=== PATIENT | male | born 1950 | race Caucasian/White ===

== ENCOUNTER 2016-11-26 22:29 | Emergency (ER) | payer MEDICARE ==
[~2016-11-26] VITALS: Ht 177.8 cm; Wt 72.6 kg
[~2016-11-26 22:29] MED LIST: AMARYL1 M1 PO; ATIVAN0.5 MG PO; B-1100 MG PO; CIPRO500 MG PO; FOLIC ACID1 MG PO; LASIX40 MG PO; LIBRIUM25 MG PO; METOPROLOL25 MG PO; PRILOSEC20 M1 PO
[2016-11-26 23:06] LABS: BASO % 0.6 % (0.0-1.0); EOS # 0.4 10*3/uL (0.0-0.4); EOS % 5.6 % (1.0-4.0); HEMATOCRIT 26.5 % (42.0-52.0); LYMPH % 14.2 % (27.0-41.0); MEAN CELL VOLUME 86.9 fl (80.0-94.0); MEAN CORPUSCULAR HGB 29.5 pg (27.0-31.0); MEAN PLATELET VOLUME 8.4 fl (9.6-12.3); MONO # 0.5 10*3/uL (0.1-1.0); MONO % 7.2 % (3.0-9.0); NEUT # 5.2 10*3/uL (2.3-7.9); NEUT % 71.8 % (47.0-73.0); PLATELET COUNT AUTOMATED 170 10*3/uL (130-400); RED BLOOD COUNT 3.05 10*6/uL (4.50-5.90); RED CELL DISTRI WIDTH 13.2 % (0-14.5); WHITE BLOOD COUNT 7.2 10*3/uL (4.8-10.8)
[2016-11-26 23:18] LABS: BUN 57 mg/dl (7-24); CARBON DIOXIDE 14 mmol/L (21-32); CHLORIDE 108 mmol/L (98-107); EST GLOM FILT AFRICAN AMERICAN 17 ml/min; GLUCOSE 77 mg/dL (65-99); POTASSIUM 4.2 mmol/L (3.5-5.1); SODIUM 137 mmol/L (136-145)
[2016-11-26 23:22] LABS: HEMOGLOBIN A1c 5.4 % (4.8-5.6)
[2016-11-27 01:07] LABS: BILIRUBIN NEGATIVE (NEGATIVE); BLOOD 1+ (NEGATIVE); CLARITY CLEAR (CLEAR); COLOR YELLOW (YELLOW); GLUCOSE NEGATIVE (NEGATIVE); KETONE NEGATIVE (NEGATIVE); LEUKO ESTERASE 2+ (NEGATIVE); NITRITE NEGATIVE (NEGATIVE); PROTEIN TRACE (NEGATIVE); SPECIFIC GRAVITY <= 1.005 (1.005-1.030); UROBILINOGEN 0.2 E.U./dl (0.2-1.0)
[2016-11-27 01:12] VITALS: BP 174/90
[2016-11-27 01:15] LABS: BACTERIA 3+; EPITHELIAL CELLS 0-2; URINE REFLEX COMMENT YES (NO); WBC 16-20 wbc/hpf (0-5)
[2016-11-27] MEDS ORDERED: CIPRO500 MG PO (01:24)
== END 2016-11-27 01:50 | disposition home or self-care (01) ==
LOC: ED 22:29
PROVIDERS: Emergency Medicine Emergency Medical Services
DX: I12.9 Hypertensive chronic kidney disease with stage 1 through stage 4 chronic kidney disease, or unspecified chronic kidney disease (principal); N18.9 Chronic kidney disease, unspecified; E11.65 Type 2 diabetes mellitus with hyperglycemia; N39.0 Urinary tract infection, site not specified; Z79.4 Long term (current) use of insulin; Z87.891 Personal history of nicotine dependence; K21.9 Gastro-esophageal reflux disease without esophagitis; Z88.8 Allergy status to other drugs, medicaments and biological substances; Z79.899 Other long term (current) drug therapy

== ENCOUNTER 2017-04-12 18:49 | Emergency (ER) | payer MEDICARE ==
[~2017-04-12] VITALS: Ht 170.1 cm; Wt 57.6 kg
[2017-04-12 18:49] VITALS: BP 145/92
[2017-04-12 19:36] LABS: BASO # 0.1 10*3/uL (0.0-0.1); BASO % 0.8 % (0.0-1.0); EOS # 0.3 10*3/uL (0.0-0.4); EOS % 4.1 % (1.0-4.0); HEMATOCRIT 27.3 % (42.0-52.0); HEMOGLOBIN 9.5 g/dl (14.0-18.0); LYMPH # 1.5 10*3/uL (1.3-4.4); LYMPH % 22.9 % (27.0-41.0); MEAN CELL VOLUME 85.8 fl (80.0-94.0); MEAN CORPUSCULAR HGB 29.9 pg (27.0-31.0); MEAN CORPUSCULAR HGB CONC 34.8 g/dl (33.0-37.0); MEAN PLATELET VOLUME 9.3 fl (9.6-12.3); MONO # 0.5 10*3/uL (0.1-1.0); MONO % 7.1 % (3.0-9.0); NEUT # 4.1 10*3/uL (2.3-7.9); NEUT % 64.9 % (47.0-73.0); PLATELET COUNT AUTOMATED 222 10*3/uL (130-400); RED BLOOD COUNT 3.18 10*6/uL (4.50-5.90); RED CELL DISTRI WIDTH 12.9 % (0-14.5); WHITE BLOOD COUNT 6.3 10*3/uL (4.8-10.8)
[2017-04-12 19:52] LABS: CREATININE 4.61 mg/dL (0.70-1.30); INTERNATIONAL NORM RATIO 1.1 (2.0-3.5); POTASSIUM 4.5 mmol/L (3.5-5.1); TOTAL PROTEIN 7.6 gm/dL (6.4-8.2)
[2017-04-12 19:53] LABS: TROPONIN I 0.036 ng/ml (<0.045)
== END 2017-04-12 21:08 | disposition home or self-care (01) ==
LOC: ED 18:49
PROVIDERS: Nurse Practitioner Family
DX: R55 Syncope and collapse (principal); N18.9 Chronic kidney disease, unspecified; F10.10 Alcohol abuse, uncomplicated; Z88.8 Allergy status to other drugs, medicaments and biological substances; Z79.899 Other long term (current) drug therapy; Z87.891 Personal history of nicotine dependence

== ENCOUNTER 2017-10-06 10:05 | Emergency (ER) | payer MEDICARE ==
[~2017-10-06] VITALS: Ht 172.7 cm; Wt 61.2 kg
[2017-10-06 10:43] LABS: BASO % 0.1 % (0.0-1.0); HEMATOCRIT 33.5 % (42.0-52.0); HEMOGLOBIN 11.4 g/dl (14.0-18.0); LYMPH # 0.5 10*3/uL (1.3-4.4); LYMPH % 5.5 % (27.0-41.0); MEAN CELL VOLUME 88.6 fl (80.0-94.0); MEAN CORPUSCULAR HGB 30.2 pg (27.0-31.0); MEAN PLATELET VOLUME 9.7 fl (9.6-12.3); MONO # 0.6 10*3/uL (0.1-1.0); MONO % 6.4 % (3.0-9.0); NEUT # 8.6 10*3/uL (2.3-7.9); NEUT % 87.3 % (47.0-73.0); PLATELET COUNT AUTOMATED 183 10*3/uL (130-400); RED BLOOD COUNT 3.78 10*6/uL (4.50-5.90); RED CELL DISTRI WIDTH 13.2 % (0-14.5); WHITE BLOOD COUNT 9.9 10*3/uL (4.8-10.8)
[2017-10-06 10:59] LABS: CREATININE 7.99 mg/dL (0.70-1.30); POTASSIUM 4.6 mmol/L (3.5-5.1); TOTAL PROTEIN 8.3 gm/dL (6.4-8.2)
[2017-10-06 11:05] LABS: TROPONIN I 9.63 ng/ml (<0.045)
[2017-10-06 11:05] LABS: ETHYL ALCOHOL < 3.0 mg/dl (<3)
[2017-10-06 12:00] LABS: ABG HCO3 4.2 mmol/l (22-26); ABG O2 SATURATION 96.8 % (95-97)
[2017-10-06 12:03] LABS: ABG BASE EXCESS -23.1 mmol/L (-2.0-2.0); ARTERIAL BLOOD GAS PCO2 11.8 mmHg (35-45); ARTERIAL BLOOD GAS PH 7.185 (7.35-7.45)
[2017-10-06 12:23] LABS: BILIRUBIN NEGATIVE (NEGATIVE); BLOOD 3+ (NEGATIVE); CLARITY CLOUDY (CLEAR); COLOR YELLOW (YELLOW); GLUCOSE NEGATIVE (NEGATIVE); KETONE TRACE (NEGATIVE); LEUKO ESTERASE NEGATIVE (NEGATIVE); NITRITE NEGATIVE (NEGATIVE); UROBILINOGEN 0.2 E.U./dl (0.2-1.0)
[2017-10-06 12:39] LABS: BACTERIA 4+; EPITHELIAL CELLS 0-2; WBC 0-2 wbc/hpf (0-5)
[2017-10-06 14:46] VITALS: BP 154/86
== END 2017-10-06 14:45 | disposition short-term general hospital (02) ==
LOC: ED 10:05
PROVIDERS: Emergency Medicine
DX: M62.82 Rhabdomyolysis (principal); I21.4 Non-ST elevation (NSTEMI) myocardial infarction; K21.9 Gastro-esophageal reflux disease without esophagitis; I12.9 Hypertensive chronic kidney disease with stage 1 through stage 4 chronic kidney disease, or unspecified chronic kidney disease; E11.22 Type 2 diabetes mellitus with diabetic chronic kidney disease; N18.9 Chronic kidney disease, unspecified; Z88.8 Allergy status to other drugs, medicaments and biological substances; Z79.899 Other long term (current) drug therapy

== ENCOUNTER 2017-12-07 12:37 | Inpatient (IN) | payer MEDICARE, MEDICAID ==
[~2017-12-07] VITALS: Ht 170.2 cm; Wt 50.0 kg
--- NOTE | ~2017-12-07 | CON ---
[place], [place] REPORT OF CONSULTATION NAME: GERALDINE TAYLOR SR [facility] #: [id number] UNIT #: [id number] ROOM: [facility] DOCTOR: KATI ZAPATA MD BIRTHDATE: [birth year] DOS: 12/08/2017 REASON FOR CONSULTATION: Elevated troponin level. HISTORY OF PRESENT ILLNESS: The patient is a 67-year-old man who was admitted to the hospital on this occasion because of increased malaise, fatigue and decreased level of consciousness. He was brought from the [facility] to the [facility] where he was found to have a marked elevation in liver enzymes as well as a fever of 103.6. Ultrasound of the liver does show pericolic fluid and thickening of the gallbladder wall along with tenderness in the right upper quadrant. The patient is felt to have acute cholecystitis. We were asked to see the patient because of elevated troponins. They have ranged from an admission level of 0.088 to a peak of 0.380. His EKG does not show any acute changes. The patient is very lethargic and does not admit to any chest pain. The patient was initially admitted to [facility] on 10/06/2017 when he presented after neighbors found him obtunded and sitting in a recliner. Laboratory studies showed that his creatinine at that time was 7.99 with an elevated troponin at 9. It was felt that his problems were due to alcohol intoxication and rhabdomyolysis. In the hospital, his renal functions did not improve and he was started on dialysis. His hospitalization was complicated by pneumonia and influenza. He was subsequently sent to [facility] and then to the [facility]. PAST MEDICAL HISTORY: Includes 1. Diabetes mellitus. 2. Hypertension. 3. History of heavy alcohol use. 4. Rhabdomyolysis with acute renal failure, September 2015. 5. Dialysis initiated, September 2015. 6. Echocardiogram, April 2013, showed a technically difficult study with normal left ventricular size and function, normal right ventricular size and function, thickened aortic valve without evidence for stenosis and mitral annular calcification. REVIEW OF SYSTEMS: Unavailable due to the patient's current condition. FAMILY HISTORY: The patient's father at age 90. The patient's mother of a heart attack at age 55. MEDICATIONS: Prior to admission: Folic acid 1 mg daily, furosemide 40 mg daily, glimepiride 1 mg twice a day, levothyroxine 25 mcg daily, lorazepam 0.5 mg b.i.d., metoprolol tartrate 25 mg b.i.d., mirtazapine 15 mg at bedtime, omeprazole 20 mg daily, vitamin D once a day, insulin NovoLog 100 units subcutaneously a.c. and at bedtime by sliding scale. SOCIAL HISTORY: The patient lives alone. He does have a history of alcohol [place], [place] REPORT OF CONSULTATION NAME: GERALDINE TAYLOR SR UNIT #: [id number] ROOM: [facility] DOCTOR: KATI ZAPATA MD BIRTHDATE: [birth year] use. He has been abstinent since his recent hospitalization in September 2017. PHYSICAL EXAMINATION: GENERAL: The patient is a cachectic appearing white male who looks much older than his stated age. VITAL SIGNS: Pulse is 98 and somewhat irregular, blood pressure is 135/88. He weighs 50 kg and has a body mass index of 17.3. He is febrile with a temperature of 103.6. HEENT: Normocephalic and atraumatic. Extraocular muscles are intact. Sclerae are clear. Pupils equal, round and react to light. The oral mucosa is moist. Tongue is midline. NECK: Supple. He has no jugular distention. Carotids are full. I heard no bruits. LUNGS: Respirations were coarse and he does have decreased breath sounds at the bases. He was using [place] respirations. CARDIOVASCULAR: His heart had a somewhat irregular rhythm. The monitor does show multifocal atrial tachycardia. He has a fourth heart sound, but no third heart sound or obvious murmur. The PMI is not displaced. He has no precordial heave, lift or thrill. ABDOMEN: Soft. He does have tenderness in the right upper quadrant. Bowel sounds are hypoactive. There is no obvious mass. EXTREMITIES: Showed no edema. Peripheral pulses are absent in the feet. LABORATORY DATA: I reviewed his electrocardiogram, which showed sinus rhythm with frequent PACs. He does have evidence for left ventricular hypertrophy and secondary ST and T-wave changes. IMPRESSION: 1. Acute cholecystitis. 2. End-stage renal disease. 3. History of alcohol abuse. 4. Mild elevation in troponin, most likely due to the combination of acute cholecystitis, possible sepsis and renal failure. PLAN: The patient is being transferred to [facility] for further management of his acute cholecystitis. I would obtain an echocardiogram to assess left ventricular function, but I believe that we should proceed with surgery as indicated. [facility] and I thank the hospitalist service for asking our advice regarding the patient's care. [place], [place] REPORT OF CONSULTATION NAME: GREALDINE TAYLOR SR UNIT #: [id number] ROOM: [facility] DOCTOR: KATI ZAPATA MD BIRTHDATE: [birth year] KATI ZAPATA MD CM:CONSTR:REPORT OF CONSULTATION 1052 12/08/17 1825 interface
[2017-12-07 12:40] VITALS: BP 140/95
[2017-12-07 13:23] LABS: BASO % 0.4 % (0.0-1.0); EOS # 0.1 10*3/uL (0.0-0.4); EOS % 1.1 % (1.0-4.0); HEMATOCRIT 32.5 % (42.0-52.0); HEMOGLOBIN 10.9 g/dl (14.0-18.0); LYMPH # 1.3 10*3/uL (1.3-4.4); LYMPH % 26.3 % (27.0-41.0); MEAN CELL VOLUME 86.4 fl (80.0-94.0); MEAN CORPUSCULAR HGB CONC 33.5 g/dl (33.0-37.0); MONO # 0.5 10*3/uL (0.1-1.0); MONO % 10.1 % (3.0-9.0); NEUT # 2.9 10*3/uL (2.3-7.9); NEUT % 61.7 % (47.0-73.0); PLATELET COUNT AUTOMATED 205 10*3/uL (130-400); RED BLOOD COUNT 3.76 10*6/uL (4.50-5.90); RED CELL DISTRI WIDTH 14.6 % (0-14.5); WHITE BLOOD COUNT 4.8 10*3/uL (4.8-10.8)
[2017-12-07 13:38] LABS: ALBUMIN 3.7 gm/dl (3.1-4.5); CREATININE 3.99 mg/dL (0.70-1.30); POTASSIUM 3.9 mmol/L (3.5-5.1); TOTAL PROTEIN 7.3 gm/dL (6.4-8.2)
[2017-12-07 13:45] LABS: TROPONIN I 0.088 ng/ml (<0.045)
[2017-12-07 15:44] VITALS: BP 140/84
[2017-12-07 17:20] VITALS: BP 140/82
[2017-12-07] MEDS ORDERED: SYNTHROID25 MCG PO (17:58)
[2017-12-07] MEDS ORDERED: NOVOLOG FL100 UNIT/1 SQ (17:59)
[2017-12-07] MEDS ORDERED: REMERON15 M2 PO (18:00)
[2017-12-07] MEDS ORDERED: NATURE'S BLEND F1 MG PO (18:00)
[2017-12-07] MEDS ORDERED: COMPLEX B-1001 EACH PO (18:01)
[2017-12-07 20:00] VITALS: BP 146/96
[2017-12-08] VITALS: BP 126/86
[2017-12-08 06:31] LABS: BASO # 0.1 10*3/uL (0.0-0.1); BASO % 0.8 % (0.0-1.0); EOS % 0.5 % (1.0-4.0); HEMATOCRIT 37.8 % (42.0-52.0); HEMOGLOBIN 12.3 g/dl (14.0-18.0); LYMPH # 2.2 10*3/uL (1.3-4.4); LYMPH % 27.3 % (27.0-41.0); MEAN CELL VOLUME 88.5 fl (80.0-94.0); MEAN CORPUSCULAR HGB 28.8 pg (27.0-31.0); MEAN CORPUSCULAR HGB CONC 32.5 g/dl (33.0-37.0); MEAN PLATELET VOLUME 10.4 fl (9.6-12.3); MONO # 0.9 10*3/uL (0.1-1.0); NEUT # 4.8 10*3/uL (2.3-7.9); NEUT % 60.1 % (47.0-73.0); RED BLOOD COUNT 4.27 10*6/uL (4.50-5.90); WHITE BLOOD COUNT 7.9 10*3/uL (4.8-10.8)
[2017-12-08 06:33] LABS: PLATELET COUNT AUTOMATED 274 10*3/uL (130-400)
[2017-12-08 06:59] LABS: ALBUMIN 3.6 gm/dl (3.1-4.5); CREATININE 4.58 mg/dL (0.70-1.30); PHOSPHOROUS 4.9 mg/dL (2.5-4.9); POTASSIUM 4.8 mmol/L (3.5-5.1); TOTAL PROTEIN 7.1 gm/dL (6.4-8.2)
[2017-12-08 07:03] LABS: THYROID STIM HORMONE (HS) 10.2 uIU/ml (0.358-4.75)
[2017-12-08 07:17] LABS: FREE T4 1.93 ng/dl (0.76-1.46)
[2017-12-08 08:00] VITALS: BP 125/85
[2017-12-08 08:17] LABS: BILIRUBIN, DIRECT 0.9 mg/dL (0.0-0.2)
[2017-12-08 08:37] LABS: VITAMIN D, 25-HYDROXY 25.2 ng/mL (30-100)
[2017-12-08 09:45] VITALS: BP 135/88
[2017-12-08 12:00] VITALS: BP 128/84
[2017-12-09 07:09] LABS: HEPATITIS B SURFACE AG Negative (Negative); HEPATITIS C VIRUS ANTIBODY 0.1 s/co (0.0-0.9)
== END 2017-12-08 13:44 | disposition short-term general hospital (02) | DRG 871 ==
LOC: ED 12:37 → ICCU 16:10 → EDHOLD 16:10 → 5E 16:10 → ICCU 12-08 09:28
PROVIDERS: Internal Medicine; Registered Nurse
DX: A41.9 Sepsis, unspecified organism (principal); N18.6 End stage renal disease; J90 Pleural effusion, not elsewhere classified; E44.0 Moderate protein-calorie malnutrition; K80.00 Calculus of gallbladder with acute cholecystitis without obstruction; E11.22 Type 2 diabetes mellitus with diabetic chronic kidney disease; K56.7 Ileus, unspecified; E83.39 Other disorders of phosphorus metabolism; E87.1 Hypo-osmolality and hyponatremia; Z68.1 Body mass index [BMI] 19.9 or less, adult; R65.20 Severe sepsis without septic shock; E11.65 Type 2 diabetes mellitus with hyperglycemia; K21.9 Gastro-esophageal reflux disease without esophagitis; I12.9 Hypertensive chronic kidney disease with stage 1 through stage 4 chronic kidney disease, or unspecified chronic kidney disease; K52.9 Noninfective gastroenteritis and colitis, unspecified; R74.0 Nonspecific elevation of levels of transaminase and lactic acid dehydrogenase [LDH]; E80.6 Other disorders of bilirubin metabolism; D64.9 Anemia, unspecified; E83.51 Hypocalcemia; Z99.2 Dependence on renal dialysis; Z88.8 Allergy status to other drugs, medicaments and biological substances; Z79.4 Long term (current) use of insulin; Z79.899 Other long term (current) drug therapy; I25.2 Old myocardial infarction; Z87.440 Personal history of urinary (tract) infections; Z87.891 Personal history of nicotine dependence; Z82.49 Family history of ischemic heart disease and other diseases of the circulatory system; Z80.9 Family history of malignant neoplasm, unspecified

== ENCOUNTER 2018-05-27 18:04 | Inpatient (IN) | payer MEDICARE ==
[~2018-05-27] VITALS: Ht 177.8 cm; Wt 48.7 kg
--- NOTE | ~2018-05-27 | EKG ---
[place], [place] ELECTROCARDIOGRAM REPORT NAME: GERALDINE TAYLOR SR UNIT #: [id number] ROOM: 525 DOCTOR: SYED DRAFT REPORT BIRTHDATE: [birth year] [facility] Test Date: 2018-05-27 Test Time: 18:48:31 Pat Name: GERALDINE TAYLOR Department: Room: 525 Gender: M Ecommerce Manager: Elizabeth Owen : 1950 Requested By: MANJIT MORALES Order Number: [id number] Reading MD: Prakash Villa MD Measurements Intervals [place] Rate: 98 P: ND: QRS: 98 QRSD: 99 T: QT: 390 QTc: 499 Interpretive Statements Atrial fibrillation Anterior infarct, old Nonspecific T abnormalities, lateral leads ST elevation, consider inferior injury Electronically Signed On 05-31-2018 12:29:46 PST by Prakash Villa MD CM:EKGRPT:ELECTROCARDIOGRAM REPORT [id number] MANJIT VAZQUEZ DRAFT REPORT MANJIT MORALES DO
[~2018-05-27 18:04] MED LIST changes: +COMPLEX B-1001 EACH PO; +NATURE'S BLEND F1 MG PO; +NOVOLOG FL100 UNIT/1 SQ; +REMERON15 M2 PO; +SYNTHROID25 MCG PO
[2018-05-27 18:17] VITALS: BP 178/104
[2018-05-27 19:08] LABS: BILIRUBIN NEGATIVE (NEGATIVE); BLOOD 1+ (NEGATIVE); CLARITY CLEAR (CLEAR); COLOR YELLOW (YELLOW); GLUCOSE TRACE (NEGATIVE); KETONE NEGATIVE (NEGATIVE); LEUKO ESTERASE NEGATIVE (NEGATIVE); NITRITE NEGATIVE (NEGATIVE); SPECIFIC GRAVITY 1.025 (1.005-1.030); UROBILINOGEN 0.2 E.U./dl (0.2-1.0)
[2018-05-27 19:23] LABS: BACTERIA 3+
[2018-05-27 19:47] VITALS: BP 175/116
[2018-05-27 19:49] LABS: BASO # 0.1 10*3/uL (0.0-0.1); BASO % 0.7 % (0.0-1.0); EOS # 0.1 10*3/uL (0.0-0.4); EOS % 0.9 % (1.0-4.0); HEMATOCRIT 36.6 % (42.0-52.0); HEMOGLOBIN 12.4 g/dl (14.0-18.0); LYMPH # 1.1 10*3/uL (1.3-4.4); LYMPH % 15.3 % (27.0-41.0); MEAN CELL VOLUME 92.7 fl (80.0-94.0); MEAN CORPUSCULAR HGB 31.4 pg (27.0-31.0); MEAN CORPUSCULAR HGB CONC 33.9 g/dl (33.0-37.0); MEAN PLATELET VOLUME 9.4 fl (9.6-12.3); MONO # 0.5 10*3/uL (0.1-1.0); MONO % 7.5 % (3.0-9.0); NEUT # 5.3 10*3/uL (2.3-7.9); NEUT % 75.3 % (47.0-73.0); PLATELET COUNT AUTOMATED 216 10*3/uL (130-400); RED BLOOD COUNT 3.95 10*6/uL (4.50-5.90); RED CELL DISTRI WIDTH 14.2 % (0-14.5); WHITE BLOOD COUNT 7.1 10*3/uL (4.8-10.8)
[2018-05-27] MEDS ORDERED: LASIX20 MG PO (19:49)
[2018-05-27] MEDS ORDERED: VALIUM10 MG PO (19:50)
[2018-05-27] MEDS ORDERED: ASPIRIN81 M1 PO (19:50)
[2018-05-27 20:06] LABS: ALBUMIN 4.2 gm/dl (3.1-4.5); TOTAL PROTEIN 8.1 gm/dL (6.4-8.2)
[2018-05-27 20:08] LABS: TROPONIN I 0.045 ng/ml (<0.045)
[2018-05-27 20:12] LABS: THYROID STIM HORMONE (HS) 11.4 uIU/ml (0.358-4.75)
[2018-05-27 20:13] LABS: ACT PARTIAL THROMBO TIME 29.7 SECONDS (19.5-32.1); INTERNATIONAL NORM RATIO 1.2 (2.0-3.5)
[2018-05-27 20:23] VITALS: BP 179/110
[2018-05-27 20:45] VITALS: BP 126/91; BP 136/80
[2018-05-27 22:28] VITALS: BP 136/80
[2018-05-28] VITALS: BP 154/89
[2018-05-28 05:55] LABS: BASO # 0.1 10*3/uL (0.0-0.1); BASO % 0.7 % (0.0-1.0); EOS % 0.4 % (1.0-4.0); HEMATOCRIT 34.9 % (42.0-52.0); HEMOGLOBIN 11.4 g/dl (14.0-18.0); LYMPH # 1.4 10*3/uL (1.3-4.4); LYMPH % 18.9 % (27.0-41.0); MEAN CELL VOLUME 93.3 fl (80.0-94.0); MEAN CORPUSCULAR HGB 30.5 pg (27.0-31.0); MEAN CORPUSCULAR HGB CONC 32.7 g/dl (33.0-37.0); MEAN PLATELET VOLUME 9.8 fl (9.6-12.3); MONO # 0.6 10*3/uL (0.1-1.0); MONO % 7.4 % (3.0-9.0); NEUT # 5.5 10*3/uL (2.3-7.9); NEUT % 72.3 % (47.0-73.0); PLATELET COUNT AUTOMATED 177 10*3/uL (130-400); RED BLOOD COUNT 3.74 10*6/uL (4.50-5.90); RED CELL DISTRI WIDTH 14.3 % (0-14.5); WHITE BLOOD COUNT 7.6 10*3/uL (4.8-10.8)
[2018-05-28 06:06] LABS: ALBUMIN 3.6 gm/dl (3.1-4.5); CREATININE 6.76 mg/dL (0.70-1.30); PHOSPHOROUS 5.9 mg/dL (2.5-4.9); POTASSIUM 4.4 mmol/L (3.5-5.1); TOTAL PROTEIN 7.1 gm/dL (6.4-8.2)
[2018-05-28 06:08] LABS: FREE T4 1.44 ng/dl (0.76-1.46)
[2018-05-28 06:12] LABS: THYROID STIM HORMONE (HS) 10.4 uIU/ml (0.358-4.75)
[2018-05-28 08:00] VITALS: BP 160/82
[2018-05-28 12:00] VITALS: BP 141/94
[2018-05-28] MEDS ORDERED: CLEOCIN HCL300 MG PO (14:50)
[2018-05-28 16:00] VITALS: BP 170/82
[2018-05-28 20:00] VITALS: BP 165/96
[2018-05-29] VITALS: BP 143/89
[2018-05-29 08:00] VITALS: BP 168/88
[2018-05-29 12:00] VITALS: BP 148/86
[2018-05-29 16:00] VITALS: BP 134/90
== END 2018-05-29 17:30 | disposition hospice, home (50) | DRG 177 ==
LOC: ED 18:04 → EDHOLD 19:56 → 5E 19:56
PROVIDERS: Emergency Medicine; Family Medicine; Internal Medicine Nephrology
DX: J15.6 Pneumonia due to other Gram-negative bacteria (principal); N18.6 End stage renal disease; G93.41 Metabolic encephalopathy; E87.2 Acidosis; B37.0 Candidal stomatitis; I12.0 Hypertensive chronic kidney disease with stage 5 chronic kidney disease or end stage renal disease; Z68.1 Body mass index [BMI] 19.9 or less, adult; E87.8 Other disorders of electrolyte and fluid balance, not elsewhere classified; E86.0 Dehydration; I16.0 Hypertensive urgency; E11.22 Type 2 diabetes mellitus with diabetic chronic kidney disease; Z66 Do not resuscitate; Z51.5 Encounter for palliative care; R79.89 Other specified abnormal findings of blood chemistry; I48.91 Unspecified atrial fibrillation; K21.9 Gastro-esophageal reflux disease without esophagitis; D64.9 Anemia, unspecified; R63.6 Underweight; I25.2 Old myocardial infarction; Z87.440 Personal history of urinary (tract) infections; Z88.8 Allergy status to other drugs, medicaments and biological substances; Z87.891 Personal history of nicotine dependence; Z82.49 Family history of ischemic heart disease and other diseases of the circulatory system; Z80.9 Family history of malignant neoplasm, unspecified; Z79.82 Long term (current) use of aspirin; Z79.899 Other long term (current) drug therapy; Z79.84 Long term (current) use of oral hypoglycemic drugs